=== PATIENT | male | born 1965 | race Caucasian/White ===

== ENCOUNTER → 2024-01-22 | Outpatient (CLI) | payer BC | LOC: M PLARAD 10:01 | PROVIDERS: ATTEND Specialist | DX: C67.2 Malignant neoplasm of lateral wall of bladder (principal) | CPT/HCPCS: 78816; A9552 ==

== ENCOUNTER 2024-04-04 10:07 | Day surgery (SDC) | payer BC ==
[~2024-04-04] VITALS: Ht 162.6 cm; Wt 58.5 kg
[~2024-04-04 10:07] MED LIST: HYDR-3363 PO; LISI10TA22; PARO20TA3
[2024-04-04] MEDS ORDERED: MIDAZOLAM INJ 2MG/2ML VIAL As Ordered ONE (10:53)
[2024-04-04] MEDS ORDERED: fentaNYL 100 MCG/2 ML INJECTION As Ordered ONE (10:53)
[2024-04-04] MEDS: LR 1,000 ML IV SCH (10:55)
[2024-04-04] MEDS ORDERED: ONDANSETRON 4MG 2ML VIAL As Ordered ONE (11:26)
[2024-04-04] MEDS ORDERED: SUGAMMADEX SODIUM 500 MG/5 ML VIAL (BRIDION) As Ordered ONE (11:27)
[2024-04-04] MEDS ORDERED: propofoL 200 MG/20 ML VIAL As Ordered ONE (11:27)
[2024-04-04] MEDS ORDERED: ROCURONIUM BROMIDE 50MG/5ML VIAL As Ordered ONE (11:27)
[2024-04-04] MEDS ORDERED: ACETAMINOPHEN 1000MG 100ML IV BAG As Ordered ONE (11:29)
[2024-04-04] MEDS ORDERED: ePHEDrine SULFATE 25 MG/5 ML(5MG/ML) SYRINGE As Ordered ONE (11:36)
[2024-04-04] MEDS ORDERED: LR 1,000 ML IV SCH ×2 (11:45→12:35)
[2024-04-04] MEDS ORDERED: fentaNYL 100 MCG/2 ML INJECTION IV PRN (11:45)
[2024-04-04] MEDS: ONDANSETRON 4MG 2ML VIAL IV PRN (12:03)
[2024-04-04] MEDS: HYDROMORPHONE HCL 0.5 MG/ 0.5 ML SYRINGE IV PRN (12:04)
[2024-04-04] MEDS: oxyCODONE 5MG TAB PO PRN (12:04)
[2024-04-04] MEDS ORDERED: HYDROcodone/APAP LIQUID 7.5-325MG 15ML UDC (LORTAB ELIXIR) PO PRN (12:35)
[2024-04-04 14:06] VITALS: BP 134/93; TEMP 99.4; O2SAT 97
== END 2024-04-04 14:20 | disposition home or self-care (01) ==
LOC: M SDC 10:07
PROVIDERS: ATTEND Otolaryngology
DX: J35.1 Hypertrophy of tonsils (principal); I10 Essential (primary) hypertension; Z79.899 Other long term (current) drug therapy
CPT/HCPCS: 42826; 88302; J0131; J0665; J1100; J1170; J2250; J2405; J3010

== ENCOUNTER → 2024-05-21 | Outpatient (CLI) | payer BC ==
[~2024-05-21] VITALS: Ht 162.6 cm; Wt 59.1 kg
[~2024-05-21] MED LIST changes: +CIPROFLOXACIN/D5W 400 MG/200 ML BAG As Ordered ONE; +ISOVUE-300 61% 100ML VIAL As Ordered ONE; +LIDOCAINE 1% MDV 20ML VIAL As Ordered ONE; +MAAL10003 PO; +MIDAZOLAM INJ 2MG/2ML VIAL As Ordered ONE; +NS 1,000 ML IV SCH; +NYST-38 PO; +ONDA-84 PO; +ONDANSETRON 4MG 2ML VIAL IV PRN; +PEPC40TA12 PO; +PERCOCET 5MG/325MG TAB As Ordered ONE; +PROC10TA5 PO; +fentaNYL 100 MCG/2 ML INJECTION As Ordered ONE
[2024-05-21 10:05] VITALS: TEMP 98.6
[2024-05-21] MEDS: MIDAZOLAM INJ 2MG/2ML VIAL IV ONE (10:06)
[2024-05-21] MEDS: CIPROFLOXACIN 400 MG in IV 1 EA IV ONE (10:06)
[2024-05-21] MEDS: NS 1,000 ML IV SCH (10:06)
[2024-05-21 12:21] LABS: APPEARANCE, URINE CLOUDY (CLEAR); BACTERIA, URINE AUTO 1+ (NEGATIVE); BILIRUBIN, URINE AUTO NEGATIVE (NEGATIVE); BLOOD, URINE BLOOD 2+ (NEGATIVE); COLOR, URINE YELLOW (YELLOW); GLUCOSE, URINE (UA) AUTO 1+ mg/dL (NEGATIVE); KETONE, URINE AUTO NEGATIVE (NEGATIVE); LEUKOCYTE ESTERASE, URINE AUTO 2+ (NEGATIVE); NITRITE, URINE AUTO NEGATIVE (NEGATIVE); PROTEIN, URINE AUTO 3+ mg/dL (NEGATIVE); RBC, URINE AUTO TNTC /HPF (0-3); SPECIFIC GRAVITY URINE AUTO 1.008 (1.002-1.035); SQUAMOUS EPITHELIAL CELL UR AU 0 /HPF (0-6); UROBILINOGEN, URINE AUTO 0.2 mg/dL (0.0-2.0); WBC, URINE AUTO 7 /HPF (0-3)
[2024-05-21] MEDS: PERCOCET 5MG/325MG TAB PO PRN (12:35)
[2024-05-21 13:15] VITALS: BP 129/76; O2SAT 94
== END ==
LOC: M IRPRO 08:46
PROVIDERS: ATTEND Physician Assistant
DX: C67.9 Malignant neoplasm of bladder, unspecified (principal); N13.30 Unspecified hydronephrosis
CPT/HCPCS: 50386; 50432; 81001; C1729; C1887; C1894; J0744; J2250; J3010; Q9967

== ENCOUNTER → 2024-05-21 | Outpatient (CLI) | payer BC ==
[~2024-05-21] MED LIST changes: -CIPROFLOXACIN/D5W 400 MG/200 ML BAG As Ordered ONE; -ISOVUE-300 61% 100ML VIAL As Ordered ONE; -LIDOCAINE 1% MDV 20ML VIAL As Ordered ONE; -MIDAZOLAM INJ 2MG/2ML VIAL As Ordered ONE; -NS 1,000 ML IV SCH; -ONDANSETRON 4MG 2ML VIAL IV PRN; -PERCOCET 5MG/325MG TAB As Ordered ONE; -fentaNYL 100 MCG/2 ML INJECTION As Ordered ONE
[2024-05-21 13:12] LABS: BASO # 0.1 10^3/uL (0.0-0.2); BASO % 1.1 % (0.0-1.0); EOS % 0.7 % (0.0-3.0); HEMATOCRIT 33.3 % (42.0-52.0); HEMOGLOBIN 11.1 g/dl (13.5-17.5); LYMPH # 1.8 10^3/uL (1.5-5.0); LYMPH % 32.2 % (24.0-44.0); MEAN CORPUSCULAR HEMOGLOBIN 31.9 pg (27.0-33.0); MEAN CORPUSCULAR HGB CONC 33.3 g/dl (32.0-36.5); MEAN CORPUSCULAR VOLUME 95.7 fl (80.0-96.0); MONO # 1.1 10^3/uL (0.0-0.8); NEUTROPHILS # 2.6 10^3/uL (1.5-8.5); NEUTROPHILS % 46.5 % (36.0-66.0); PLATELET COUNT, AUTOMATED 817 10^3/uL (150-450); RED BLOOD COUNT 3.48 10^6/uL (4.30-6.10); WHITE BLOOD COUNT 5.5 10^3/uL (4.0-10.0)
[2024-05-21 13:44] LABS: ALBUMIN 3.2 G/DL (3.2-5.2); ALKALINE PHOSPHATASE 74 U/L (46-116); ALT/SGPT 16 U/L (7.0-40); AST/SGOT 14 U/L (<34); BILIRUBIN,TOTAL 0.3 MG/DL (0.3-1.2); BLOOD UREA NITROGEN 13 MG/DL (9-23); CALCIUM LEVEL 8.9 MG/DL (8.5-10.1); CARBON DIOXIDE LEVEL 26 MMOL/L (20-31); CHLORIDE LEVEL 109 MMOL/L (98-107); GLOMERULAR FILTRATION RATE > 60.0 (>56); GLUCOSE, FASTING 73 MG/DL (60-100); MAGNESIUM LEVEL 1.7 MG/DL (1.8-2.4); POTASSIUM SERUM 4.3 MMOL/L (3.5-5.1); SODIUM LEVEL 141 MMOL/L (136-145); TOTAL PROTEIN 5.9 G/DL (5.7-8.2)
== END ==
LOC: M LAB 12:49
PROVIDERS: ATTEND Internal Medicine Hematology & Oncology
DX: C67.9 Malignant neoplasm of bladder, unspecified (principal)

== ENCOUNTER → 2024-06-28 | Outpatient (CLI) | payer BC ==
[~2024-06-28] MED LIST changes: +CIPROFLOXACIN/D5W 400 MG/200 ML BAG As Ordered ONE; +ISOVUE-300 61% 100ML VIAL As Ordered ONE; +LIDOCAINE 1% MDV 20ML VIAL As Ordered ONE; +LIDOCAINE 2% 100MG/5ML SDV (FOR ANES.) As Ordered ONE; +MIDAZOLAM INJ 2MG/2ML VIAL As Ordered ONE; +ONDANSETRON 4MG 2ML VIAL IV PRN; +PERCOCET 5MG/325MG TAB PO PRN; +PHENYLephrine 500MCG 5ML (100MCG/ML) SYRINGE As Ordered ONE; +fentaNYL 100 MCG/2 ML INJECTION As Ordered ONE; +propofoL 200 MG/20 ML VIAL As Ordered ONE
[2024-06-28 10:00] VITALS: TEMP 98.3
[2024-06-28] MEDS: NS 1,000 ML IV SCH (10:20)
[2024-06-28] MEDS: CIPROFLOXACIN 400 MG in IV 1 EA IV ONE (11:32)
[2024-06-28 13:45] VITALS: BP 148/96; O2SAT 100
== END ==
LOC: M IRPRO 09:45
PROVIDERS: ATTEND Physician Assistant
DX: N13.39 Other hydronephrosis (principal); C67.9 Malignant neoplasm of bladder, unspecified
CPT/HCPCS: 50435; C1729; J0744; J2250; J2371; J3010; Q9967

== ENCOUNTER → 2024-07-17 | Outpatient (CLI) | payer BC ==
[~2024-07-17] MED LIST changes: -CIPROFLOXACIN/D5W 400 MG/200 ML BAG As Ordered ONE; -ISOVUE-300 61% 100ML VIAL As Ordered ONE; -LIDOCAINE 1% MDV 20ML VIAL As Ordered ONE; -LIDOCAINE 2% 100MG/5ML SDV (FOR ANES.) As Ordered ONE; +LISI20TA33; -MIDAZOLAM INJ 2MG/2ML VIAL As Ordered ONE; -ONDANSETRON 4MG 2ML VIAL IV PRN; -PERCOCET 5MG/325MG TAB PO PRN; -PHENYLephrine 500MCG 5ML (100MCG/ML) SYRINGE As Ordered ONE; -fentaNYL 100 MCG/2 ML INJECTION As Ordered ONE; -propofoL 200 MG/20 ML VIAL As Ordered ONE
== END ==
LOC: M RAD 16:07
PROVIDERS: ATTEND Internal Medicine Medical Oncology
DX: M25.552 Pain in left hip (principal); C67.9 Malignant neoplasm of bladder, unspecified; M16.0 Bilateral primary osteoarthritis of hip

== ENCOUNTER → 2024-07-23 | Outpatient (CLI) | payer BC | LOC: M ONCM 14:00 | PROVIDERS: ATTEND Dietitian, Registered | DX: C67.9 Malignant neoplasm of bladder, unspecified (principal); Z71.3 Dietary counseling and surveillance ==

== ENCOUNTER → 2024-08-20 | Outpatient (CLI) | payer BC | LOC: M PLARAD 08:15 | PROVIDERS: ATTEND Specialist | DX: C67.2 Malignant neoplasm of lateral wall of bladder (principal) | CPT/HCPCS: 78816; A9552 ==

== ENCOUNTER → 2024-09-30 | Outpatient (CLI) | payer BC ==
[~2024-09-30] MED LIST changes: +ACET-683 PO; +AMLO1TAB24 PO; +ISOVUE-370 76% 100ML VIAL As Ordered ONE; -LISI20TA33; +LISI20TA33 PO
== END ==
LOC: M RAD 12:22
PROVIDERS: ATTEND Radiology Diagnostic Radiology
DX: Z01.818 Encounter for other preprocedural examination (principal)
CPT/HCPCS: 74177; Q9967

== ENCOUNTER 2024-11-22 11:42 | Observation (INO) | payer BC ==
[~2024-11-22] VITALS: Ht 162.6 cm; Wt 60.0 kg
[2024-11-22] VITALS (7 sets, daily range): BP systolic 103–129; BP diastolic 65–84; TEMP 98.6–99.1; O2SAT 93–95
[~2024-11-22 11:42] MED LIST changes: -ISOVUE-370 76% 100ML VIAL As Ordered ONE
[2024-11-22] MEDS ORDERED: LIDOCAINE 2% 100MG/5ML SDV (FOR ANES.) As Ordered ONE (13:21)
[2024-11-22] MEDS ORDERED: SUGAMMADEX SODIUM 500 MG/5 ML VIAL (BRIDION) As Ordered ONE (13:21)
[2024-11-22] MEDS ORDERED: ONDANSETRON 4MG 2ML VIAL As Ordered ONE (13:21)
[2024-11-22] MEDS ORDERED: fentaNYL 100 MCG/2 ML INJECTION As Ordered ONE (13:21)
[2024-11-22] MEDS ORDERED: propofoL 200 MG/20 ML VIAL As Ordered ONE (13:21)
[2024-11-22] MEDS ORDERED: MIDAZOLAM INJ 2MG/2ML VIAL As Ordered ONE (13:21)
[2024-11-22] MEDS ORDERED: CIPROFLOXACIN/D5W 400 MG/200 ML BAG As Ordered ONE (13:24)
[2024-11-22] MEDS ORDERED: ROCURONIUM BROMIDE 50MG/5ML VIAL As Ordered ONE (13:26)
[2024-11-22] MEDS ORDERED: LIDOCAINE 1% MDV 20ML VIAL As Ordered ONE (13:26)
[2024-11-22] MEDS ORDERED: ISOVUE-300 61% 100ML VIAL As Ordered ONE (13:26)
[2024-11-22] MEDS ORDERED: ACETAMINOPHEN 1000MG/100ML IV BAG As Ordered ONE (14:06)
[2024-11-22] MEDS ORDERED: LIDOCAINE 2% JELLY 6ML SYRINGE As Ordered ONE (14:29)
[2024-11-22 14:47] LABS: KETONE, URINE AUTO RFX 1+ mg/dL (NEGATIVE); LEUKOCYTE ESTERASE UR AUTO RFX NEGATIVE (NEGATIVE); MUCUS, URINE RFX SMALL (NEGATIVE); NITRITE, URINE AUTO RFX NEGATIVE (NEGATIVE); RBC, URINE AUTO RFX 44 /HPF (0-3); SQUAM EPITHELIAL CELL UR AURFX 0 /HPF (0-6); WBC, URINE AUTO RFX 3 /HPF (0-3)
[2024-11-22] MEDS ORDERED: ONDANSETRON 4MG 2ML VIAL IV PRN ×2 (15:50→16:10)
[2024-11-22] MEDS ORDERED: PERCOCET 5MG/325MG TAB PO PRN (15:50)
[2024-11-22] MEDS ORDERED: MORPHINE 2 MG/ML 1ML VIAL IV PRN ×2 (15:50→16:55)
[2024-11-22] MEDS ORDERED: ePHEDrine SULFATE 25 MG/5 ML(5MG/ML) SYRINGE As Ordered ONE (15:55)
[2024-11-22] MEDS ORDERED: PHENYLephrine 500MCG 5ML (100MCG/ML) SYRINGE As Ordered ONE (15:56)
[2024-11-22] MEDS ORDERED: oxyCODONE 5MG TAB PO PRN (16:10)
[2024-11-22] MEDS ORDERED: METOCLOPRAMIDE INJ 10MG/2ML VIAL IV PRN (16:10)
[2024-11-22] MEDS ORDERED: fentaNYL 100 MCG/2 ML INJECTION IV PRN (16:10)
[2024-11-22] MEDS ORDERED: HYDROMORPHONE HCL 0.5 MG/ 0.5 ML SYRINGE IV PRN (16:10)
[2024-11-22] MEDS: LR 1,000 ML IV SCH (16:42)
[2024-11-22] MEDS: ACETAMINOPHEN 325 MG TAB PO PRN (17:05)
[2024-11-22] MEDS: NS (Normal Saline) 0.9% 1,000 ML IV SCH (18:07)
[2024-11-22] MEDS: CIPROFLOXACIN 400 MG in IV 1 EA IV ONE (18:07)
[2024-11-22 18:34] LABS: HEMATOCRIT 35.4 % (42.0-52.0); HEMOGLOBIN 11.8 g/dl (13.5-17.5); MEAN CORPUSCULAR HEMOGLOBIN 32.9 pg (27.0-33.0); MEAN CORPUSCULAR HGB CONC 33.3 g/dl (32.0-36.5); MEAN CORPUSCULAR VOLUME 98.6 fl (80.0-96.0); PLATELET COUNT, AUTOMATED 354 10^3/uL (150-450); RED BLOOD COUNT 3.59 10^6/uL (4.30-6.10); WHITE BLOOD COUNT 6.3 10^3/uL (4.0-10.0)
[2024-11-22 18:51] LABS: BLOOD UREA NITROGEN 24 MG/DL (9-23); CALCIUM LEVEL 9.2 MG/DL (8.5-10.1); CARBON DIOXIDE LEVEL 25 MMOL/L (20-31); CHLORIDE LEVEL 104 MMOL/L (98-107); CREATININE FOR GFR 1.13 MG/DL (0.70-1.30); GLOMERULAR FILTRATION RATE > 60.0 (>56); GLUCOSE, FASTING 100 MG/DL (60-100); POTASSIUM SERUM 3.9 MMOL/L (3.5-5.1); SODIUM LEVEL 139 MMOL/L (136-145)
[2024-11-22] MEDS: PERCOCET 5MG/325MG TAB PO PRN (21:18)
[2024-11-22] MEDS: CIPROFLOXACIN 500MG TABLET PO SCH (21:18)
[2024-11-22] MEDS ORDERED: HOME MED LIST COMPLETE! XX SCH (22:30)
[2024-11-22] MEDS: oxyBUTYnin 5 MG TAB PO PRN (22:53)
[2024-11-23] VITALS: BP 104/60; TEMP 98.4; O2SAT 95
[2024-11-23 04:00] VITALS: BP 111/64; TEMP 98.2; O2SAT 97
[2024-11-23 06:17] LABS: HEMATOCRIT 31.2 % (42.0-52.0); HEMOGLOBIN 10.8 g/dl (13.5-17.5); MEAN CORPUSCULAR HEMOGLOBIN 33.8 pg (27.0-33.0); MEAN CORPUSCULAR HGB CONC 34.6 g/dl (32.0-36.5); MEAN CORPUSCULAR VOLUME 97.5 fl (80.0-96.0); PLATELET COUNT, AUTOMATED 325 10^3/uL (150-450); WHITE BLOOD COUNT 5.9 10^3/uL (4.0-10.0)
[2024-11-23 06:49] LABS: BLOOD UREA NITROGEN 22 MG/DL (9-23); CARBON DIOXIDE LEVEL 26 MMOL/L (20-31); CHLORIDE LEVEL 105 MMOL/L (98-107); CREATININE FOR GFR 1.15 MG/DL (0.70-1.30); GLOMERULAR FILTRATION RATE > 60.0 (>56); GLUCOSE, FASTING 100 MG/DL (60-100); POTASSIUM SERUM 4.5 MMOL/L (3.5-5.1); SODIUM LEVEL 141 MMOL/L (136-145)
[2024-11-23 08:00] VITALS: BP 115/68; TEMP 99; O2SAT 94
[2024-11-23 08:11] VITALS: BP 115/68
[2024-11-23] MEDS: amLODIPine 5 MG TAB PO SCH (08:11)
[2024-11-23] MEDS ORDERED: OXYC-517 PO (10:10)
[2024-11-23] MEDS ORDERED: OXYB5TAB14 PO (10:10)
[2024-11-23] MEDS ORDERED: CIPR500T39 PO (10:10)
[2024-11-23] MEDS: ACETAMINOPHEN 325 MG TAB PO ONE (10:24)
[2024-11-23 12:00] VITALS: BP 102/69; TEMP 98.8; O2SAT 95
== END 2024-11-23 13:00 | disposition home or self-care (01) ==
LOC: M IRPRO 11:42 → M MS5PR 17:47
PROVIDERS: ADMIT Internal Medicine; ATTEND Internal Medicine
DX: N13.30 Unspecified hydronephrosis (principal); C67.9 Malignant neoplasm of bladder, unspecified; Z43.6 Encounter for attention to other artificial openings of urinary tract; Z90.6 Acquired absence of other parts of urinary tract; Z93.6 Other artificial openings of urinary tract status; K91.89 Other postprocedural complications and disorders of digestive system; I10 Essential (primary) hypertension; F41.9 Anxiety disorder, unspecified; Z79.899 Other long term (current) drug therapy; Z79.2 Long term (current) use of antibiotics
CPT/HCPCS: 36415; 50435; 80048; 81001; 85027; C1729; C1769; C1887; J0131; J0744; J1100; J2250; J2371; J2405; J3010; Q9967

== ENCOUNTER → 2025-04-08 | Outpatient (CLI) | payer MEDICAID, OTHER ==
[~2025-04-08] MED LIST changes: +CIPR500T39 PO; +OXYB5TAB14 PO; +OXYC-517 PO
== END ==
LOC: M PLARAD 13:59
PROVIDERS: ATTEND Physician Assistant
DX: C67.2 Malignant neoplasm of lateral wall of bladder (principal)
CPT/HCPCS: 78816; A9552

== ENCOUNTER → 2025-08-26 | Outpatient (CLI) | payer OTHER ==
[2025-08-26 13:05] VITALS: TEMP 99.2
[2025-08-26] MEDS: CEPHALEXIN 500 MG CAP PO ONE (13:22)
[2025-08-26] MEDS: LIDOCAINE 1% MDV 20 ML VIAL SC SCH (13:51)
[2025-08-26] MEDS: ISOVUE-300 61% 100 ML VIAL IV SCH (13:56)
[2025-08-26] MEDS: SODIUM CHLORIDE 0.9% 1000 ML XX SCH (13:58)
[2025-08-26 14:30] VITALS: BP 121/84; O2SAT 100
== END ==
LOC: M IRPRO 12:36
PROVIDERS: ATTEND Radiology Diagnostic Radiology
DX: N13.30 Unspecified hydronephrosis (principal)
CPT/HCPCS: 50435; C1729; Q9967